=== PATIENT | male | born 1960 | race Caucasian/White ===

== ENCOUNTER 2017-06-18 17:53 | Inpatient (IN) | payer OTHER ==
[~2017-06-18] VITALS: Ht 182.9 cm; Wt 121.2 kg
[2017-06-18 18:04] VITALS: Ht 182.9 cm; Wt 121.2 kg
[2017-06-18] MEDS ORDERED: ZOLOFT100 MG PO (21:47)
[2017-06-18 22:39] VITALS: BP 186/78
[2017-06-18 23:32] VITALS: BP 169/80
[2017-06-19 00:36] LABS: BASOPHIL % 0.4 % (0-2); PLATELET COUNT 176 x10^3mcL (130-400); RED CELL DISTRIBUTION WIDTH 14.3 % (11.5-14.5)
[2017-06-19 00:53] LABS: CHOLESTEROL/HDL RATIO 3.1; MAGNESIUM 1.7 mg/dL (1.8-2.4); PHOSPHOROUS 2.6 mg/dL (2.5-4.9)
[2017-06-19 01:07] LABS: FREE T4 1.05 ng/dL (0.76-1.46); FREE THYROXINE INDEX 2.4 ug/dL (1.4-4.5); T4(THYROXINE) 7.5 ug/dL (4.7-13.3)
[2017-06-19 02:58] LABS: CALCIUM 8.2 mg/dL (8.5-10.1); CHLORIDE SERUM 105 mmol/L (98-107); CREATININE SERUM 0.9 mg/dL (0.7-1.3); GFR1 > 60 mL/min; GLUCOSE SERUM 148 mg/dL (74-106); POTASSIUM SERUM 3.6 mmol/L (3.5-5.1); SODIUM SERUM 142 mmol/L (136-145)
[2017-06-19 03:12] LABS: T3 TOTAL 1.27 ng/mL
[2017-06-19 05:47] VITALS: BP 149/91
[2017-06-19 08:25] LABS: microscopic required? NO
[2017-06-19 08:41] VITALS: BP 166/88
[2017-06-19 08:55] LABS: UA SPECIFIC GRAVITY >=1.030 (1.005-1.035); urine erythrocyte NEGATIVE (NEGATIVE)
[2017-06-19 09:10] LABS: AMPHETAMINE QUAL UR NONE DETECTED (NEG <=1000)
[2017-06-19 13:09] VITALS: BP 159/89
[2017-06-19 13:40] LABS: ALBUMIN 3.4 g/dL (3.4-5.0); BILIRUBIN DIRECT 0.13 mg/dL (0.0-0.2); BILIRUBIN TOTAL 0.5 mg/dL (0.20-1.00); TOTAL PROTEIN, SERUM 6.6 g/dL (6.4-8.2)
[2017-06-19 15:29] VITALS: BP 150/82
[2017-06-19 17:36] VITALS: BP 146/95
[2017-06-19 20:46] VITALS: BP 142/80
[2017-06-20 05:13] VITALS: BP 128/83
[2017-06-20 06:25] LABS: CALCIUM 8.1 mg/dL (8.5-10.1); CARBON DIOXIDE 26.6 mmol/L (21-32); CHLORIDE SERUM 106 mmol/L (98-107); CREATININE SERUM 0.8 mg/dL (0.7-1.3); GFR1 > 60 mL/min; GLUCOSE SERUM 103 mg/dL (74-106); POTASSIUM SERUM 3.6 mmol/L (3.5-5.1); SODIUM SERUM 141 mmol/L (136-145)
[2017-06-20 06:27] LABS: BASOPHIL % 0.6 % (0-2); PLATELET COUNT 158 x10^3mcL (130-400)
[2017-06-20 07:14] LABS: RED CELL DISTRIBUTION WIDTH 14.6 % (11.5-14.5)
[2017-06-20] MEDS ORDERED: METHOCARBAMOL500 MG PO (09:03)
[2017-06-20] MEDS ORDERED: COZ25 PO (09:13)
[2017-06-20] MEDS ORDERED: IBUPROFEN400 MG PO (09:17)
[2017-06-20] MEDS ORDERED: NORCO1 TA2 PO (09:18)
[2017-06-20 10:38] VITALS: BP 147/84
[2017-06-20 10:53] VITALS: BP 147/84
== END 2017-06-20 11:33 | disposition home or self-care (01) | DRG 342 ==
LOC: ED 17:53 → DU 21:35
PROVIDERS: Family Medicine
PROC: 0RSJXZZ Reposition Right Shoulder Joint, External Approach (ICD-10-PCS; principal; 2017-06-18)
PROC: 0RSJXZZ Reposition Right Shoulder Joint, External Approach (ICD-10-PCS; 2017-06-19)
DX: S43.014A Anterior dislocation of right humerus, initial encounter (principal); E83.51 Hypocalcemia; F41.9 Anxiety disorder, unspecified; E66.9 Obesity, unspecified; W18.39XA Other fall on same level, initial encounter; I16.0 Hypertensive urgency; Y93.81 Activity, refereeing a sports activity; Y92.39 Other specified sports and athletic area as the place of occurrence of the external cause; Y99.8 Other external cause status; Z81.8 Family history of other mental and behavioral disorders; Z68.36 Body mass index [BMI] 36.0-36.9, adult
CPT/HCPCS: 83880; 84439; J0330; J1170; J1885; J2250; J2270; J2704; J3010; J7030; J7120; Q0092